=== PATIENT | female | born 1955 | race Caucasian/White ===

== ENCOUNTER 2023-04-17 20:10 | Emergency (ER) | payer MEDICARE, SELFPAY ==
--- NOTE | 2023-04-17 21:04 | PC.NURSE ---
20:04 Pt. arrived by [facility] with CPR in progress. Last epi was given by ems at 20:03. NO shocks given. BS was 240 I/0 L shoulder. PT arrived unresponsive, not breathing and CPR in progress, with PEA as rhythm. EMS placed LMA in field. PT aspirated and vomited is visible noted. Pupils were fixed and dilated. Skin was pale,cold, dry. Pt came from [facility]
--- NOTE | 2023-04-17 21:11 | PC.NURSE ---
20:04 arrival to room 4. Pt placed on bed operator. PT placed on Quick- Combo pads. 20:07 pulse check pt is in PEA. 20:08 Epi given 20:09 amp of Bi-carb given 20:11 pulse check PEA noted 20:13 time of called
--- NOTE | 2023-04-17 21:14 | PC.NURSE ---
20:04 Veto rod we coded her for 15-20 minutes.
--- NOTE | 2023-04-17 21:15 | PC.NURSE ---
20:15 Family at bedside. 20:40 Family wants pt to go to [facility]. Charge is aware
--- NOTE | 2023-04-17 21:25 | PC.NURSE ---
20:25 Elva from [facility] called this RN. Jung Stevenson pt went to the bathroom at 18:30 with an aid due to incontinence and fell. Jung Stevenson had a controlled fall. Jung Stevenson pt then went into cardiac arrest. Jung Stevenson CPR was started. Jung Stevenson pt had a pulse at 19:29 and CPR was stopped and ems was called. Pt was placed on 2L of 02 via NC. [facility] ems arrived at 19:30.
--- NOTE | 2023-04-17 21:31 | PC.NURSE ---
20:30 Family found a home for pt. please see previous notes
--- NOTE | 2023-04-17 21:35 | PC.NURSE ---
20:11 pulse check revealed PEA
--- NOTE | 2023-04-18 07:46 | ED.GENADULT ---
HPI - General Adult General Chief complaint: Shortness of Breath/Dyspnea Stated complaint: CARDIAC ARREST Time Seen by Provider: 04/17/23 20:14 Source: family, EMS and RN notes reviewed Mode of arrival: EMS Limitations: clinical condition History of Present Illness HPI narrative: This is a 68 year old female with history of stage 4 cancer with brain mass who presents in cardiac arrest. EMS states patient is at [facility]. It is reported that patient had heart rate in 200s and she went unresponsive at facility. On EMS arrival, patient was in asystole. They reports patient has been in cardiac arrest for 25 minutes prior to arrival. They have placed left shoulder IO and intubated patient with igel. Patient has been asystole during EMS resuscitation. She has been given epi x 3 doses and no shocks. PAtient is still in cardiac arrest on arrival. Review of Systems Review of Systems: ROS unobtainable: Yes unobtainable due to medical condition Exam Const: General: ill appearing Other: unresponsive HENMT: Head: normal to inspection Other: copious brown substance coming out of patient mouth Eyes: Other: pupils are fixed and dilated Resp: Auscultation: clear to auscultation bilaterally Other: PAtient has Igel in place . Cardio: Other: no pulse, shannan still going GI: Inspection: distended Auscultation: Hypoactive bowel sounds present Skin: General skin exam: pallor Neuro: Other: unresponsive, no movement Course Reevaluation(s) Reevaluation #1: I spoke with family and brought them back to room. AFter discussion they report patient would not want to continue CPR and given that patient has been down for 25 minutes it seems futile to continue. CPR was stopped. PAtient asystole. Family at bedside. Time of 2012 Date: 04/17/23 Time: 20:14 Discharge Plan Discharge Clinical Impression: Cardiac arrest Patient Disposition: Condition: Follow-up/Referrals: Robert Sandy MD [Primary Care Provider] -
== END 2023-04-17 22:18 | disposition expired ==
PROVIDERS: Emergency Provider General Practice; PCP Family Medicine
DX: I46.9 Cardiac arrest, cause unspecified (principal)
CPT/HCPCS: 92950; 96374; 99285; J0171